=== PATIENT | male | born 1985 | race Hispanic/Latino ===

== ENCOUNTER 2021-02-23 14:18 | Emergency (ER) | payer SELFPAY ==
[2021-02-23] MEDS ORDERED: Acetaminophen 500 MG TAB ONE (16:59)
[2021-02-23] MEDS ORDERED: Bacitracin 1 PK ONE (18:58)
== END 2021-02-23 19:05 | disposition home or self-care (01) ==
LOC: ERS 14:18
DX: S50.812A Abrasion of left forearm, initial encounter (principal); S60.512A Abrasion of left hand, initial encounter; X58.XXXA Exposure to other specified factors, initial encounter